=== PATIENT | female | born 2000 | race Caucasian/White ===

== ENCOUNTER 2019-07-26 15:18 | Emergency (ER) | payer SELFPAY ==
[~2019-07-26] VITALS: Ht 162.6 cm; Wt 51.8 kg
[2019-07-26] MEDS ORDERED: ONDANSETRON HCL 4 MG/2 ML VIAL IM ONE (16:30)
[2019-07-26 16:45] LABS: BASOPHILS % (AUTO) 0.4 % (0.0-2.0); EOSINOPHILS % (AUTO) 0 % (1.0-6.0); HEMATOCRIT 39.1 % (36-46); HEMOGLOBIN 12.7 g/dL (12.0-16.0); LYMPHOCYTES # (AUTO) 1.2 K/uL (1.0-4.8); LYMPHOCYTES % (AUTO) 7.8 % (22.0-44.0); MEAN CORPUSCULAR HGB CONC 32.5 G/dL (31.0-37.0); MEAN CORPUSCULAR VOLUME 83 fL (80-100); MONOCYTES # (AUTO) 0.4 K/uL (0.1-1.0); MONOCYTES % (AUTO) 2.7 % (2.0-9.0); NEUTROPHILS # (AUTO) 14.2 K/uL (1.8-7.7); PLATELET COUNT (AUTO) 354 K/uL (150-450); RED BLOOD CELL COUNT(AUTO) 4.72 MIL/uL (4.00-5.20); RED CELL DISTRIBUTION WIDTH 15.7 % (11.5-14.5)
[2019-07-26 16:47] LABS: NEUTROPHILS % (AUTO) 89.1 % (40.0-70.0)
[2019-07-26 16:56] LABS: ANION GAP 16 mmol/L (8-16); CALCIUM, TOTAL 9.9 mg/dL (8.8-10.5); CARBON DIOXIDE 21 mmol/L (22-29); CHLORIDE 103 mmol/L (98-107); CREATININE 1.03 mg/dL (0.60-1.30); GLOMERULAR FILTR. RATE CALC > 60 mL/min (>60); GLUCOSE,RANDOM 133 mg/dL (70-110); POTASSIUM 3.9 mmol/L (3.5-5.1); SODIUM SERUM 140 mmol/L (136-145); UREA NITROGEN, BLOOD 15 mg/dL (7-18)
[2019-07-26 17:10] LABS: ALANINE AMINOTRANSFERASE 36 U/L (12-78); ALBUMIN 4.4 g/dL (3.4-5.0); ALKALINE PHOSPHATASE 93 U/L (46-116); ASPARTATE AMINOTRANSFERASE 41 U/L (15-37); BILIRUBIN,TOTAL 0.3 mg/dL (0.1-1.0); HCG,QUANTITATIVE < 1 mIU/mL (0-6); LIPASE 44 U/L (73-393); TOTAL PROTEIN, SERUM 8.2 g/dL (6.4-8.2)
[2019-07-26 17:12] LABS: PLATELET MORPHOLOGY COMMENT GIANT PLTS PRESENT
[2019-07-26] MEDS ORDERED: BISMUTH SUBSALICYLATE 524 MG/30 ML SUSPENSION UDCUP PO ONE (17:30)
[2019-07-26] MEDS ORDERED: SODIUM CHLORIDE 0.9% 1,000 ML IV ONE ×2 (18:00→19:45)
[2019-07-26 19:04] LABS: APPEARANCE,URINE CLEAR (CLEAR); BILIRUBIN,URINE NEGATIVE (NEGATIVE); GLUCOSE, URINE (UA) NEGATIVE (NEGATIVE); KETONES,URINE >=80 mg/dL (NEGATIVE); LEUKOCYTE ESTERASE ,URINE NEGATIVE (NEGATIVE); NITRATE,URINE NEGATIVE (NEGATIVE); OCCULT BLOOD,URINE NEGATIVE (NEGATIVE); PH,URINE 7.5 (5.0-8.0); PROTEIN,URINE SEE CONFIRM (NEGATIVE); UROBILINOGEN,URINE 0.2 mg/dL (<=1.0)
[2019-07-26 19:13] LABS: SULFOSALICYLIC ACID,URINE 2+ (Negative)
[2019-07-26 19:14] LABS: BACTERIA,URINE Few /HPF (None Seen); RBC,URINE 0-2 /HPF (0-2); SQUAMOUS EPITHELIAL CELL,UR Few /LPF (None Seen); WBC,URINE 0-2 /HPF (0-5)
[2019-07-26] MEDS ORDERED: HALOPERIDOL LACTATE 5 MG/ML VIAL IVP ONE (19:45)
[2019-07-26] MEDS ORDERED: DiphenhydrAMINE HCL 50 MG/ML VIAL IVP ONE (19:45)
[2019-07-26 20:34] VITALS: BP 144/88
== END 2019-07-26 20:41 | disposition home or self-care (01) ==
LOC: EMS 15:19
DX: R11.2 Nausea with vomiting, unspecified (principal); R10.13 Epigastric pain; R19.7 Diarrhea, unspecified; F12.90 Cannabis use, unspecified, uncomplicated; F41.9 Anxiety disorder, unspecified; F31.9 Bipolar disorder, unspecified; F17.210 Nicotine dependence, cigarettes, uncomplicated; Z91.018 Allergy to other foods
CPT/HCPCS: 36415; 76705; 80053; 81001; 81003; 83690; 84702; 85025; 96361; 96372; 96374; 96375; 99284; J1200; J1630; J2405; J7030